=== PATIENT | female | born 1965 | race Caucasian/White ===

== ENCOUNTER 2017-09-19 17:42 | Observation (INO) | payer OTHER ==
[~2017-09-19] VITALS: Ht 165.1 cm; Wt 77.0 kg
[~2017-09-19 17:42] MED LIST: AMBI10TA PO
[2017-09-19 17:44] VITALS: BP 132/75; PULSE 112; PULSE 12; RESP 18; TEMP 98.9; O2SAT 97
[2017-09-19] MEDS ORDERED: ZOLP10TA3 PO (18:12)
[2017-09-19] MEDS ORDERED: ONDANSETRON HCL 4 MG/2 ML VIAL IV PUSH ONE (18:15)
[2017-09-19] MEDS ORDERED: HYDROmorphone HCL PF 2 MG/ML VIAL IVS ONE (18:15)
[2017-09-19] MEDS: SODIUM CHLOR 0.9% 1000 ML INJ 1,000 ML IV SCH ×2 (18:39→22:52)
[2017-09-19 18:45] VITALS: BP 105/60; PULSE 96; RESP 18; O2SAT 100
--- NOTE | 2017-09-19 18:56 | PD ---
HPI Chief Complaint: [employer] Problem/Complaint Time Seen by Provider: 18:00 Travel History International Travel<30 days: No Contact w/Intl Traveler<30days: No Traveled to known affect area: No History of Present Illness HPI So 52-year-old woman presents emergent from of left sided abdominal pains, mild for couple days, severe times today. Extensive workup that for the [facility]. Found to have an ovarian masses CT, no flow on ultrasound, diagnosed ovarian torsion recommended for surgery. Patient did not want surgery and the land and so left and came here. White count was a little bit elevated. No history of previous similar problems. She had a hysterectomy in the past. No other abdominal surgeries. History Past Medical History Medical History: Denies Significant Hx Tetanus Vaccination: Unknown Influenza Vaccination: No : 2 Para: 2 Social History Alcohol Use: Yes (OCCASIONAL) Tobacco Use: No Allergies-Medications (Allergen,Severity, Reaction): Coded Allergies: penicillin G (Unverified Allergy, Severe, RASH, 09/19/17) Reported Meds & Prescriptions Reported Meds & Active Scripts Active Reported Zolpidem (Zolpidem Tartrate) 10 Mg Tab 10 Mg PO HS PRN Review of Systems Except as stated in HPI: all other systems reviewed are Neg Physical Exam Narrative GENERAL: Well-appearing 52-year-old woman, no acute distress. SKIN: Focused skin assessment warm/dry. HEAD: Atraumatic. Normocephalic. CARDIOVASCULAR: Regular rate and rhythm. No murmur appreciated. RESPIRATORY: No accessory muscle use. Clear to auscultation. Breath sounds equal bilaterally. GASTROINTESTINAL: Abdomen soft, non-tender, nondistended. Hepatic and splenic margins not palpable. MUSCULOSKELETAL: No obvious deformities. No clubbing. No cyanosis. No edema. NEUROLOGICAL: Awake and alert. No obvious cranial nerve deficits. Motor grossly within normal limits. Normal speech. PSYCHIATRIC: Appropriate mood and affect; insight and judgment normal. Data Data Last Documented VS Vital Signs Date Time Temp Pulse Resp B/P (MAP) Pulse Ox O2 Delivery O2 Flow Rate FiO2 09/19/17 18:45 96 18 105/60 (75) 100 Room Air 09/19/17 17:44 98.9 Orders Orders Iv Access Insert/Monitor (09/19/17 18:13) Sodium Chlor 0.9% 1000 Ml Inj (Ns 1000 M (09/19/17 18:15) Ondansetron Inj (Zofran Inj) (09/19/17 18:15) Hydromorphone Pf Inj (Dilaudid Pf Inj) (09/19/17 18:15) MDM Medical Decision Making Medical Screen Exam Complete: Yes Emergency Medical Condition: Yes Medical Record Reviewed: Yes Differential Diagnosis Ovarian torsion, ovarian mass, Narrative Course Medical decision-making 52 year-old woman, presents from an outside ED diagnosed ovarian torsion, reviewed labs, reviewed imaging, I spoke with Dr. Avalos, on-call for OB hospitalist. She came down to the bedside to evaluate the patient and reviewed outpatient workup as well. We'll discuss with Dr. Garcia, likely to the OR. Diagnosis Primary Impression: Ovarian torsion Joey Garg MD Sep 19, 2017 18:56
--- NOTE | 2017-09-19 19:00 | HHI.HP ---
HPI Chief Complaint Abdominal pain and back pain Date Seen: Sep 19, 2017 Travel History International Travel<30 Days: No Contact w/Intl Traveler<30Days: No Known Affected Area: No History of Present Illness HPI 52-year-old female complains of left lower quadrant pelvic pain radiating to her back for the past 3 days with worsening pain today, patient rates it as 8 out of 10 and went to [facility] in [place] after being seen at urgent care. While she was there she had a CT scan of the abdomen and pelvis and an ultrasound, was diagnosed with a left ovarian torsion due to a cystic mass at the apex of the vagina, with absent Doppler flow. Patient declined to stay a [facility] because a [employer] surgeon was not laparoscopically trained and would've performed exploratory laparotomy. She sees Dr. Chelsy elizalde as her primary laserist and came here as she knew the Dr. Storey had privileges here. Patient denies fever, diarrhea, constipation. He does complain of mild nausea vomiting with the pain and patient states that she's had to be treated with 3 doses of IV pain medication due to the severity. [facility] recommended surgery while the patient was at the facility the patient elected to leave. History Past Medical History Medical History: Denies Significant Hx Past Surgical History Narrative Surgical Laparoscopic assisted supracervical hysterectomy Right shoulder surgery Left knee arthroscopy 2 Breast reduction surgery Family History Family History: Negative Social History Alcohol Use: Yes (socially) Tobacco Use: No Substance Abuse: No Allergies-Medications (Allergen,Severity, Reaction): Coded Allergies: penicillin G (Unverified Allergy, Severe, RASH, 09/19/17) Home Meds Reported Medications Zolpidem (Zolpidem) 10 Mg Tab, 10 MG PO HS Y for INSOMNIA, TAB 0 Refills 09/19/17 Review of Systems Except as stated in HPI: all other systems reviewed are Neg Physical Exam Vital Signs Date Time Temp Pulse Resp B/P (MAP) Pulse Ox O2 Delivery O2 Flow Rate FiO2 09/19/17 18:45 96 18 105/60 (75) 100 Room Air 09/19/17 17:44 98.9 112 18 132/75 (94) 97 Room Air Narrative GENERAL: Well-nourished, well-developed patient. SKIN: Warm and dry. HEAD: Normocephalic and atraumatic. EYES: No scleral icterus. No injection or drainage. ENT: No nasal drainage noted. Mucous membranes pink. Airway patent. NECK: Supple, trachea midline. No JVD. CARDIOVASCULAR: Regular rate and rhythm without murmurs, gallops, or rubs. RESPIRATORY: Breath sounds equal bilaterally. No accessory muscle use. ABDOMEN/GI: Abdomen soft, tender and lower pelvis and left adnexa, bowel sounds present, no rebound, no guarding GENITOURINARY: No palpable masses the patient has exquisite tenderness in the left adnexa EXTREMITIES: No cyanosis or edema. BACK: Nontender without obvious deformity. No CVA tenderness. NEUROLOGICAL: Awake and alert. Motor and sensory grossly within normal limits. Five out of 5 muscle strength in all muscle groups. Normal speech. Caprini VTE Risk Assessment Caprini VTE Risk Assessment: No/Low Risk (score <= 1) Caprini Risk Assessment Model Point Value = 1 Point Value = 2 Point Value = 3 Point Value = 5 Age 41-60 Minor surgery BMI > 25 kg/m2 Swollen legs Varicose veins or History of unexplained or recurrent spontaneous Oral contraceptives or hormone replacement Sepsis (< 1 month) Serious lung disease, including pneumonia (< 1 month) Abnormal pulmonary function Acute myocardial infarction Congestive heart failure (< 1 month) History of inflammatory bowel disease Medical patient at bed rest Age 61-74 Arthroscopic surgery Major open surgery (> 45 min) Laparoscopic surgery (> 45 min) Malignancy Confined to bed (> 72 hours) Immobilizing plaster cast Central venous access Age >= 75 History of VTE Family history of VTE Factor V Leiden Prothrombin [id number] Lupus anticoagulant Anticardiolipin antibodies Elevated serum homocysteine Heparin-induced thrombocytopenia Other congenital or acquired thrombophilia Stroke (< 1 month) Elective arthroplasty Hip, pelvis, or leg fracture Acute spinal cord injury (< 1 month) Prophylaxis Regimen Total Risk Factor Score Risk Level Prophylaxis Regimen 0-1 Low Early ambulation 2 Moderate Order ONE of the following: *Sequential Compression Device (SCD) *Heparin 5000 units SQ BID 3-4 Higher Order ONE of the following medications: *Heparin 5000 units SQ TID *Enoxaparin/Lovenox 40 mg SQ daily (WT < 150 kg, CrCl > 30 mL/min) *Enoxaparin/Lovenox 30 mg SQ daily (WT < 150 kg, CrCl > 10-29 mL/min) *Enoxaparin/Lovenox 30 mg SQ BID (WT < 150 kg, CrCl > 30 mL/min) AND/OR *Sequential Compression Device (SCD) 5 or more Highest Order ONE of the following medications: *Heparin 5000 units SQ TID (Preferred with Epidurals) *Enoxaparin/Lovenox 40 mg SQ daily (WT < 150 kg, CrCl > 30 mL/min) *Enoxaparin/Lovenox 30 mg SQ daily (WT < 150 kg, CrCl > 10-29 mL/min) *Enoxaparin/Lovenox 30 mg SQ BID (WT < 150 kg, CrCl > 30 mL/min) AND *Sequential Compression Device (SCD) Data Data Orders Orders Iv Access Insert/Monitor (09/19/17 18:13) Sodium Chlor 0.9% 1000 Ml Inj (Ns 1000 M (09/19/17 18:15) Ondansetron Inj (Zofran Inj) (09/19/17 18:15) Hydromorphone Pf Inj (Dilaudid Pf Inj) (09/19/17 18:15) Labs Patient has hard copies of her lab results and ultrasound Ultrasound the pelvis shows a surgically absent uterus and right ovary measures 2.4 x 1.3 x 1.4 cm, left ovary measures 5.5 x 5.4 x 3.3 cm with no color Doppler flow noted which is consistent with torsion multiple ovarian sister noticed with the largest cyst measuring 3.3 x 2[address] scan of abdomen and pelvis Lobular fluid attenuation lesion ventral to the vagina and superior to the urinary bladder which could reflect a multilobulated cystic mass arising from the left adnexa or less likely dilated fluid-filled loops of small bowel pelvic sonography couldn't further characterize this lesion low-density lesion in the superior vagina likely reflects a nabothian cyst, Assessment/Plan Assessment and Plan 52-year-old patient with a history of a laparoscopic supracervical hysterectomy now with pelvic and abdominal pain and imaging results that is most consistent with a left ovarian torsion Patient was counseled regarding the risks and benefits of surgery including the possibilities of exploratory laparotomy if issues are encountered during operative laparoscopy. She was consented for an operative laparoscopy with a possible exploratory laparotomy with a left salpingo-oophorectomy. She understands the risks of infection bleeding injury to the bowel below bladder the ureters, vascular injury, anesthetic complications. Dr. Garcia was notified about this patient and the findings as above, he is covering for Eileen Barclay MD Sep 19, 2017 19:00
[2017-09-19 19:29] VITALS: BP 121/63; PULSE 79; RESP 18; O2SAT 100
[2017-09-19] MEDS ORDERED: BUPIVACAINE HCL PF 0.25% 30 ML VIAL ONE (19:34)
[2017-09-19] MEDS ORDERED: fentaNYL CITRATE 250 MCG/5 ML AMP ONE (19:34)
[2017-09-19] MEDS ORDERED: CLINDAMYCIN PHOS 600 MG/4 ML VIAL ONE (19:42)
[2017-09-19] MEDS ORDERED: LEVOFLOXACIN 500 MG PREMIX INJ 100 ML IV ONE (19:42)
[2017-09-19] MEDS ORDERED: METOCLOPRAMIDE HCL 10 MG/2 ML VIAL ONE (19:48)
[2017-09-19] MEDS ORDERED: MIDAZOLAM HCL 2 MG/2 ML VIAL ONE (19:48)
[2017-09-19] MEDS: LACTATED RINGER'S 1000 ML INJ 1,000 ML IV SCH (20:48)
[2017-09-19] MEDS ORDERED: LORazepam 0.5 MG TAB PO PRN (21:00)
[2017-09-19] MEDS ORDERED: oxyCODONE/ACETAMINOPHEN 5 MG/325 MG TAB PO PRN (21:00)
[2017-09-19] MEDS ORDERED: SODIUM CHLORIDE 0.9% FLUSH 10 ML FLUSH IV FLUSH PRN (21:00)
[2017-09-19] MEDS ORDERED: IBUPROFEN 600 MG TAB PO PRN (21:00)
[2017-09-19] MEDS ORDERED: ZOLPIDEM TARTRATE 5 MG TAB PO PRN (21:00)
[2017-09-19] MEDS ORDERED: KETOROLAC TROMETHAMINE 30 MG/ML (IVP) VIAL IVP PRN (21:00)
[2017-09-19] MEDS: SODIUM CHLORIDE 0.9% FLUSH 10 ML FLUSH IV FLUSH SCH (21:00)
[2017-09-19] MEDS ORDERED: MORPHINE SULFATE 4 MG/ML INJ IV PUSH PRN (21:00)
[2017-09-19] MEDS ORDERED: ONDANSETRON HCL 4 MG/2 ML VIAL IVP PRN (21:00)
[2017-09-19] MEDS ORDERED: DO NOT ADM ANY ANTICOAGULANT DRUGS PRN (21:06)
[2017-09-19] MEDS ORDERED: MEPERIDINE HCL 25 MG/ML VIAL ONE (21:18)
[2017-09-19 22:50] VITALS: BP 95/70; PULSE 68; RESP 16; TEMP 98.3; O2SAT 97
[2017-09-19] MEDS: oxyCODONE/ACETAMINOPHEN 5 MG/325 MG TAB PO PRN (23:48)
[2017-09-20] VITALS (8 sets, daily range): BP systolic 86–112; BP diastolic 56–72; PULSE 53–79; RESP 14–18; TEMP 97.8–98.1; O2SAT 96–100
[2017-09-20] MEDS: LACTATED RINGER'S 1000 ML INJ 1,000 ML IV SCH (03:59)
[2017-09-20] MEDS: oxyCODONE/ACETAMINOPHEN 5 MG/325 MG TAB PO PRN ×3 (05:26→17:18)
--- NOTE | 2017-09-20 07:11 | MP ---
cc: MACARENA VICENTE,JOEY Wagner M.D. DATE OF SURGERY 09/19/2017 PREOPERATIVE DIAGNOSIS Left ovarian torsion. PROCEDURE Laparoscopy with left salpingo-oophorectomy. Lysis of adhesions. POSTOPERATIVE DIAGNOSIS Left ovarian torsion. SURGEON MD Jose ANESTHESIA General with endotracheal intubation. ESTIMATED BLOOD LOSS None. DRAINS Oswald to gravity during procedure only. OPERATIVE FINDINGS The patient had a large hemorrhagic left ovary with obvious torsion at the infundibulopelvic vessels. There were some small adhesions on the contralateral side involving the omentum and the right ovary was normal in its size, shape, consistency and attachment. Surgical specimen included left ovary and a portion of fallopian tube. INDICATION FOR PROCEDURE The patient presented to the [facility] with previous diagnosis of a left ovarian torsion from [facility]. The patient presented with severe pain in the left flank, nausea and vomiting. Recommendation was to proceed with operative laparoscopy and left oophorectomy. The patient received Levaquin and clindamycin due to PENICILLIN ALLERGY. PROCEDURE DESCRIPTION The patient was taken to the operating room under general anesthesia, had endotracheal tube placed. She was carefully positioned in dorsal lithotomy position using Juan stirrups on the lower extremities. She had sequentials placed for VTE prophylaxis. She was prepped and draped. A Oswald was inserted by sterile technique. Time-out was conducted and agreed on by all present in the room. A simple sponge stick was placed within the vaginal vault for manipulation of the cervix. The patient had a previous hysterectomy. The umbilical port site was chosen first injecting with 0.25% plain Marcaine and passing a 5-mm visible port trocar into the perineal cavity without complication and then insufflating at low pressure. The patient was then placed into steep Trendelenburg positioning. A suprapubic port was placed under direct vision using a 12-mm trocar and then a 5-mm lateral port on the right side, again with direct placement. The torsion was identified. The harmonic scalpel was used to lyse the adhesions and secure the pedicle site hemostatically. The adnexa was then placed in an EndoCatch bag through the 12 port and brought through the 12 -m port site and sent as a permanent section. The omental adhesion on the right was lysed easily with harmonic scalpel. Documentation of hemostasis again was made off pressure. There was a small amount of hemorrhagic fluid in the cul-de-sac which was aspirated. Again, hemostasis confirmed at the closure the case and pneumoperitoneum was decompressed. Trocars were removed intact under direct vision and then the suprapubic 12-mm port site was closed with a #1 Vicryl suture at the level of the fascia. The skin incisions were closed with a subcuticular suture of 4-0 Monocryl with Steri-Strips and Band-Aids placed over the incision. The Oswald catheter was removed under sterile technique and the sponge stick was removed from the vaginal vault. At the end of the case, final count was correct. The patient was stable. She was taken to the recovery room on room air. Joey Garcia MD [facility] /8:42 PM /6:46 AM
[2017-09-20] MEDS ORDERED: IBUP-232 PO (07:46)
[2017-09-20] MEDS ORDERED: PERC5TAB12 PO (07:47)
--- NOTE | 2017-09-20 07:50 | HHI.DS ---
Discharge Summary Admission Date Sep 19, 2017 at 19:30 Discharge Date: Sep 20, 2017 Admitting Diagnosis ovarian torsion (1) Ovarian torsion Diagnosis: Principal ICD Codes: N83.519 - Torsion of ovary and ovarian pedicle, unspecified side Status: Acute Procedures Diagnostic laparoscopy, left salpingoophorecotmy, lysis of adhesions Brief History see Hospital course Hospital Course 52-year-old female who presented outside urgent care facility and was diagnosed with suspected ovarian torsion, she left AMA and presented to our facility desiring laparoscopic surgery as the remittance clerk at the outside hospital was planning to perform a laparotomy, patient underwent diagnostic laparoscopy, left salpingo-oophorectomy, lysis of adhesions, she had an uncomplicated surgery, postoperative day #1 she was meeting all of her milestones and was discharged home. Pt Condition on Discharge: Good Discharge Disposition: Discharge Home Discharge Instructions DIET: Follow Instructions for: As Tolerated, No Restrictions Activities you can perform: Weight Bearing as Eduard, Shower/Bath Activities to avoid: Driving for 24 hrs, Strenuous Activity Follow up Referrals: REAL ESTATE LEGAL ASSISTANT - 2 Weeks @ [facility] with Joey Garcia MD New Medications: Ibuprofen (Ibuprofen) 600 Mg Tab 600 MG PO Q6H PRN for PAIN, #30 TAB 0 Refills Oxycodone-Acetaminophen (Percocet) 5-325 mg Tab 1 TAB PO Q4H PRN for PAIN, #16 TAB 0 Refills Continued Medications: Zolpidem (Zolpidem) 10 Mg Tab 10 MG PO HS PRN for INSOMNIA, TAB 0 Refills John Boyce MD Sep 20, 2017 07:50
--- NOTE | 2017-09-20 07:53 | HHI.PR ---
Subjective Remarks Doing well, pain is well controlled, throat is dry, but tolerating fluids no n/v , desires to eat breakfast, ambulating, voiding. . Objective Vital Signs Vital Signs Date Time Temp Pulse Resp B/P (MAP) Pulse Ox O2 Delivery O2 Flow Rate FiO2 09/20/17 04:00 97.8 57 18 91/56 (68) 97 09/20/17 01:18 97.8 69 18 103/69 (80) 96 09/19/17 22:50 98.3 68 16 95/70 (78) 97 09/19/17 22:15 76 16 102/62 (75) 100 Nasal Cannula 2 09/19/17 22:01 73 14 103/62 (76) 100 Nasal Cannula 2 09/19/17 21:45 83 20 108/64 (79) 100 Nasal Cannula 2 09/19/17 21:35 87 16 107/63 (78) 100 Nasal Cannula 2 09/19/17 21:15 98 18 100/57 (71) 100 Nasal Cannula 2 09/19/17 21:02 97.7 98 18 100/57 (71) 100 Nasal Cannula 2 09/19/17 19:47 09/19/17 19:29 79 18 121/63 (82) 100 Room Air 09/19/17 18:45 96 18 105/60 (75) 100 Room Air 09/19/17 17:44 98.9 112 18 132/75 (94) 97 Room Air I/O 09/19/17 09/19/17 09/19/17 09/20/17 09/20/17 09/20/17 07:00 15:00 23:00 07:00 15:00 23:00 Intake Total 1000 ml 1405 ml Output Total 180 ml 600 ml Balance 820 ml 805 ml Intake Oral 480 ml IV Total 925 ml Other 1000 ml Output Urine Total 170 ml 600 ml Estimated Blood Loss 10 ml Objective Remarks Chest is clear, regular rate and rhythm. Abdomen is soft and non-distended. Incisions clean and dry and intact. Ext no CCE. A/P Assessment and Plan 52 yo s/p diagnostic scope w/ LSO for torsion 1. POD #1: doing well, d/c home after tolerating breakfast. FU office 2 weeks, discussed post op precautions and expectations. John Boyce MD Sep 20, 2017 07:53
[2017-09-20] MEDS: SODIUM CHLORIDE 0.9% FLUSH 10 ML FLUSH IV FLUSH SCH (09:00)
== END 2017-09-20 18:40 | disposition home or self-care (01) ==
LOC: NEPC 17:42 → UNDOADMOB 19:30 → NEDA 19:30 → H1EA 22:40 → UNDODISOB 09-20 18:40
PROVIDERS: ADMIT Obstetrics & Gynecology; ATTEND Obstetrics & Gynecology
DX: N83.512 Torsion of left ovary and ovarian pedicle (principal)
CPT/HCPCS: 00840; 58661; 88305; 94150; 96374; 96375; 99285; G0378; J1170; J1956; J2175; J2250; J2405; J2765; J3010; J7030; J7120